=== PATIENT | male | born 1980 | race Caucasian/White ===

== ENCOUNTER 2023-01-08 09:49 | Outpatient (CLI) | payer BC | END 2023-01-08 09:50 | disposition home or self-care (01) | LOC: SCSRAD 09:49 | PROVIDERS: ATTEND Nurse Practitioner Family | DX: R05.1 Acute cough (principal) | CPT/HCPCS: 71046 ==

== ENCOUNTER 2023-04-07 10:30 | Outpatient (CLI) | payer BC | END 2023-04-07 10:31 | disposition home or self-care (01) | LOC: SCSRAD 10:30 | PROVIDERS: ATTEND Nurse Practitioner Family | DX: R06.02 Shortness of breath (principal); J94.9 Pleural condition, unspecified; Z98.890 Other specified postprocedural states | CPT/HCPCS: 71046 ==